=== PATIENT | male | born 1960 | race Caucasian/White ===

== ENCOUNTER 2016-05-01 16:15 | Emergency (ER) | payer MEDICARE, OTHER | END 2016-05-01 17:55 | disposition home or self-care (01) | LOC: ER 16:15 | DX: J44.0 Chronic obstructive pulmonary disease with (acute) lower respiratory infection (principal); J20.9 Acute bronchitis, unspecified; E66.9 Obesity, unspecified; F17.210 Nicotine dependence, cigarettes, uncomplicated | CPT/HCPCS: 87502; 87651 ==